=== PATIENT | male | born 1970 | race Caucasian/White ===

== ENCOUNTER 2017-10-02 06:54 | Day surgery (SDC) | payer MEDICAID ==
[~2017-10-02] VITALS: Ht 172.7 cm; Wt 80.9 kg
[2017-10-02 07:05] VITALS: BP 142/94; PULSE 74; RESP 20; TEMP 97.8; O2SAT 98
[2017-10-02] MEDS ORDERED: ROBA750T PO (07:40)
[2017-10-02] MEDS ORDERED: IBUP1TAB7 PO (07:40)
[2017-10-02] MEDS ORDERED: LACTATED RINGER'S 1000 ML INJ 1,000 ML IV SCH (08:00)
[2017-10-02 08:14] LABS: AUTOMATED NEUTROPHIL # 3.9 TH/MM3 (1.8-7.7); BASOPHIL # 0.1 TH/MM3 (0-0.2); BASOPHIL % 1.1 % (0.0-2.0); EOSINOPHIL # 0.2 TH/MM3 (0-0.4); EOSINOPHIL % 3.2 % (0.0-4.0); HEMOGLOBIN 14.5 GM/DL (13.0-17.0); LYMPHOCYTE # 1.9 TH/MM3 (1.0-4.8); MEAN CELL VOLUME 90.9 FL (80.0-100.0); MEAN CORPUSCULAR HEMOGLOBIN 31.3 PG (27.0-34.0); MEAN CORPUSCULAR HGB CONC 34.4 % (32.0-36.0); MEAN PLATELET VOLUME 7.7 FL (7.0-11.0); MONO % 10.7 % (0.0-8.0); MONOCYTE # 0.7 TH/MM3 (0-0.9); PLATELET COUNT 281 TH/MM3 (150-450); RED BLOOD COUNT 4.62 MIL/MM3 (4.50-5.90); RED CELL DISTRIBUTION WIDTH 14.9 % (11.6-17.2); WHITE BLOOD COUNT 6.7 TH/MM3 (4.0-11.0)
[2017-10-02] MEDS ORDERED: DIAZEPAM 5 MG TAB PO SCH (08:15)
[2017-10-02 08:23] LABS: BICARBONATE 25.4 MEQ/L (21.0-32.0); CALCIUM 8.8 MG/DL (8.5-10.1); CREATININE 1.04 MG/DL (0.60-1.30)
[2017-10-02 08:25] LABS: PROTHROMBIN TIME - PATIENT 9.9 SEC (9.8-11.6)
[2017-10-02] MEDS ORDERED: IOHEXOL 180 MG/ML 20 ML VIAL (for RAD DIAG) IT ONE (09:05)
--- NOTE | 2017-10-02 09:16 | PD.RAD ---
Post Procedure Progress Note Pre Procedure Diagnosis: (1) Back pain Post Procedure Diagnosis: (1) Back pain (2) History of laminectomy Procedure Date: Oct 02, 2017 Supervising Radiologist: Joaquim Nelson Proceduralist/Assist: Augustina Chapa, RT(R)(CV), Steff Benavidez RT(R) Anesthesia: Local Plan of Activity Patient to Unit: Other (CT) Patient Condition: Good See PACS Report for procedural detail/treatment Spinal Procedure Myelogram L3-L4 Puncture Time: 09:05 Findings: High grade spinal stenosis at l4-5. CT to follow Joaquim Nelson MD Oct 02, 2017 09:16
[2017-10-02] MEDS ORDERED: ACETAMINOPHEN 325 MG TAB PO PRN (09:30)
[2017-10-02] MEDS ORDERED: MORPHINE SULFATE 2 MG/ML INJ IV PUSH PRN (09:30)
[2017-10-02] MEDS ORDERED: oxyCODONE/ACETAMINOPHEN 5 MG/325 MG TAB PO PRN (09:30)
[2017-10-02 09:45] VITALS: BP 129/80; PULSE 60; RESP 20; TEMP 97.6; O2SAT 98
--- NOTE | 2017-10-02 10:13 | RADRPT ---
EXAM DATE/TIME: 10/02/2017 09:37 [facility] COMPARISON: CT LUMBAR SPINE W/O CONTRAST, December 05, 2015, 9:25. INDICATIONS : Severe back pain, Post myelogram study RADIATION DOSE: 38.06 CTDIvol (mGy) CT of the lumbar spine was performed post myelogram. MEDICAL HISTORY : None SURGICAL HISTORY : Laminectomy, Stimulator ENCOUNTER: Initial ACUITY: 1 day PAIN SCALE: 6/10 LOCATION: Lumbar TECHNIQUE: Volumetric scanning of the lumbar spine was performed. Multiplanar reconstructions in the sagittal, coronal and oblique axial planes were performed. Using automated exposure control and adjustment of the mA and/or kV according to patient size, radiation dose was kept as low as reasonably achievable t o obtain optimal diagnostic quality images. DICOM format image data is available electronically for review and comparison. FINDINGS: VERTEBRAE: Vertebral body height is maintained throughout. A spinal stimulator is seen entering the central jennifer l the T11-T12 level and coursing cephalad. ALIGNMENT: There is a minimal retrolisthesis of L5 on S1 which is stable. Alignment is otherwise unremarkable T12-L1: The thecal sac has a normal diameter. No evidence of disc bulge or protrusion. The neural foramina are patent bilaterally. L1-L2: The thecal sac has a normal diameter. No evidence of disc bulge or protrusion. The neural foramina are patent bilaterally. L2-L3: The thecal sac has a normal diameter. No evidence of disc bulge or protrusion. The neural foramina are patent bilaterally. L3-L4: There is a central bulge. On the previous examination this is more broad-based in nature. On the curr ent study there is mild narrowing of the intrathecal space. In the midline this measures 7 mm in ante rior to posterior dimension. Lateral recesses and neural foramina are patent. Facet joints are unrema rkable. L4-L5: There is mild disc space narrowing and a mild broad-based disc bulge. There is narrowing of the centr al canal with the intrathecal space measuring 5 mm in anterior to posterior dimension within the midl ine. Lateral recesses show mild narrowing. Moderate ligamentum flavum hypertrophy of the facets. Neur al foramina are patent. Appearance is stable. L5-S1: Prior right hemilaminectomy changes. The central canal and lateral recesses are patent. Significant d isc space narrowing with retrolisthesis. Neural foramina are patent. The appearance is stable. CONCLUSION: 1. Stable exam when compared to the prior study from 2016. The only change has been an L3-L4 where th e broad-based disc bulge from the prior study is slightly more central in nature on the current study . The degree of stenosis of the central canal at L3-L4 and L4-L5 is stable. 2. Prior right hemilaminectomy changes at L5-S1 with a patent central canal at this level. Babak Devries Jr., MD on October 02, 2017 at 10:01 Board Certified Radiologist. This report was verified electronically.
[2017-10-02 10:45] VITALS: BP 121/74; PULSE 62; RESP 18; O2SAT 99
[2017-10-02 13:30] VITALS: BP 132/75; PULSE 67; RESP 20; TEMP 97.4; O2SAT 97
--- NOTE | 2017-10-03 14:36 | RADRPT ---
EXAM DATE/TIME: 10/02/2017 08:39 [facility] COMPARISON: MYELOGRAM - LUMBAR SPINE, December 05, 2015, 8:11. INDICATIONS : Patient with chronic back pain in need of lumbar myelogram. MEDICAL HISTORY : GERD SURGICAL HISTORY : Right rotator cuff surgery, Vagal nerve stimulator, L4-L5 laminectomy ENCOUNTER: Subsequent ACUITY: 4-6 months PAIN SCORE: 8/10 LOCATION: Low back and left leg LUMBAR PUNCTURE TIME: 0905 hours FLUORO TIME: 1.2 minutes IMAGE SERIES: 4 CONTRAST: 15 cc Omnipaque (iohexol) 180 ACCESS LEVEL: L3-4 PROCEDURE : 1. Fluoroscopic guided lumbar puncture. 2. Lumbar myelogram. The risks, benefits and alternatives to the procedure were explained and verbal and written consent w as obtained. The site was prepped in sterile fashion. Full sterile technique was used, including ca p, mask, sterile gloves and gown and a large sterile sheet. Hand hygiene and 2% chlorhexidine and/or betadine/alcohol prep was utilized per protocol for cutaneous antisepsis. The skin and subcutaneous tissues were infiltrated with local anesthetic solution. With fluoroscopic guidance the lumbar thecal sac was punctured at level above and a diagnostic quanti ty of contrast is present in the subarachnoid space. Radiographs were obtained of the lumbar spine. Lateral images showing mild stenosis at L3-4 with a high grade spinal stenosis at L4-5. The patient tolerated procedure well and there were no complications. CT scan is to be performed for further evaluation. CONCLUSION: Uncomplicated lumbar myelogram as above. CT scan is to be performed for further evaluation. Joaquim Nelson MD on October 03, 2017 at 14:33 Board Certified Radiologist. This report was verified electronically.
== END 2017-10-02 13:48 | disposition home or self-care (01) ==
LOC: HROP 06:54 → HRIP 06:54 → HROP 13:48
DX: M48.061 Spinal stenosis, lumbar region without neurogenic claudication (principal); M54.5 Low back pain
CPT/HCPCS: 62304; 72131; 80048; 85025; 85610; 85730; J2270; J7120; Q9965